=== PATIENT | male | born 1970 | race African-American/Black ===

== ENCOUNTER 2018-01-10 23:09 | Emergency (ER) | payer OTHER ==
[~2018-01-10] VITALS: Ht 182.9 cm; Wt 108.9 kg
[2018-01-10] MEDS ORDERED: [UNRECOGNIZED DRUG - REMARK] (23:19)
[2018-01-10 23:51] LABS: URINE BILIRUBIN NEGATIVE (Negative); URINE BLOOD NEGATIVE (Negative); URINE CLARITY CLEAR; URINE COLOR YELLOW; URINE GLUCOSE-RANDOM* NEGATIVE (Negative); URINE KETONES NEGATIVE (Negative); URINE LEUKOCYTES-REFLEX NEGATIVE (Negative); URINE NITRITE-REFLEX NEGATIVE (Negative); URINE PROTEIN (DIPSTICK) NEGATIVE (Negative); URINE SPECIFIC GRAVITY 1.015 (1.005-1.035); URINE UROBILINOGEN 0.2 E.U./dl (0.2-1.0)
[2018-01-10 23:59] LABS: AMP/METHAMP Negative (Negative); BARBITURATES Negative (Negative); BENZODIAZEPINES Negative (Negative); COCAINE POSITIVE (Negative); METHADONE Negative (Negative); OPIATES Negative (Negative); PCP Negative (Negative)
[2018-01-11] MEDS ORDERED: ULTRAM 50MG TAB50 MG PO (00:37)
[2018-01-11] MEDS ORDERED: NORFLEX100 MG PO (00:37)
[2018-01-11] MEDS ORDERED: NAPROSYN500 MG PO (00:37)
[2018-01-11 01:40] VITALS: BP 100/56
== END 2018-01-11 01:41 | disposition home or self-care (01) ==
LOC: ER 23:09
PROVIDERS: Emergency Medicine
DX: S39.012A Strain of muscle, fascia and tendon of lower back, initial encounter (principal); W10.9XXA Fall (on) (from) unspecified stairs and steps, initial encounter; Y93.89 Activity, other specified; Y92.89 Other specified places as the place of occurrence of the external cause; Y99.8 Other external cause status; F17.210 Nicotine dependence, cigarettes, uncomplicated; Z88.0 Allergy status to penicillin

== ENCOUNTER 2018-03-26 14:23 | Emergency (ER) | payer OTHER ==
[~2018-03-26] VITALS: Ht 188 cm; Wt 106.1 kg
[~2018-03-26 14:23] MED LIST: NAPROSYN500 MG PO; NORFLEX100 MG PO; ULTRAM 50MG TAB50 MG PO; [UNRECOGNIZED DRUG - REMARK]
[2018-03-26 15:27] LABS: ICTOTEST (BILI CONFIRMATORY) Positive (Negative); URINE BILIRUBIN 1+ (Negative); URINE BLOOD NEGATIVE (Negative); URINE CLARITY CLEAR; URINE COLOR AMBER; URINE GLUCOSE-RANDOM* NEGATIVE (Negative); URINE KETONES 1+ (Negative); URINE NITRITE-REFLEX NEGATIVE (Negative); URINE PROTEIN (DIPSTICK) NEGATIVE (Negative)
[2018-03-26 15:28] LABS: URINE LEUKOCYTES-REFLEX NEGATIVE (Negative)
[2018-03-26 15:37] LABS: HEMATOCRIT 44.6 % (42.0-52.0); HEMOGLOBIN 15.4 gm/dL (14.0-18.0); MCH 33.5 pg (26.0-34.0); MCHC 34.5 g/dL (28.0-37.0); MCV 97.2 fL (80.0-100.0); PLATELET COUNT 186 thou/uL (150-400); RBC 4.59 mil/uL (4.50-6.00); RDW 12.7 % (10.5-14.5); WBC 3.9 thou/uL (4.0-11.0)
[2018-03-26 15:44] LABS: CALCIUM 9.1 mg/dL (8.5-10.1); CREATININE 1.1 mg/dL (0.7-1.3); POTASSIUM 4.5 mmol/L (3.5-5.1)
[2018-03-26 15:50] LABS: ALBUMIN 3.8 g/dL (3.4-5.0); TOTAL PROTEIN 8.3 g/dL (6.4-8.2)
[2018-03-26 16:05] LABS: ABSOLUTE NEUTROPHILS 2.3 thou/uL (1.4-8.2); PLATELET ESTIMATE NORMAL
[2018-03-26] MEDS ORDERED: NORCO 5-325 TA1 EACH PO (18:53)
[2018-03-26 18:59] VITALS: BP 164/95
== END 2018-03-26 19:00 | disposition home or self-care (01) ==
LOC: ER 14:23
PROVIDERS: Emergency Medicine
DX: M54.5 Low back pain (principal); R10.32 Left lower quadrant pain; I10 Essential (primary) hypertension; I48.91 Unspecified atrial fibrillation

== ENCOUNTER 2018-08-09 17:07 | Inpatient (IN) | payer OTHER ==
[~2018-08-09] VITALS: Ht 188 cm; Wt 101.2 kg
[2018-08-09] VITALS (8 sets, daily range): BP systolic 119–144; BP diastolic 76–90
[~2018-08-09 17:07] MED LIST changes: +NORCO 5-325 TA1 EACH PO
[2018-08-09 17:33] LABS: BASOPHILS 1.7 % (0.0-2.0); EOSINOPHILS 7.8 % (0.0-3.0); HEMATOCRIT 45.9 % (42.0-52.0); HEMOGLOBIN 15.7 gm/dL (14.0-18.0); LYMPHOCYTES 30.1 % (24.0-44.0); MCH 32.2 pg (26.0-34.0); MCHC 34.1 g/dL (28.0-37.0); MCV 94.5 fL (80.0-100.0); MONOCYTES 11.7 % (1.0-8.0); PLATELET COUNT 218 thou/uL (150-400); POLYS 48.7 % (36.0-66.0); RBC 4.86 mil/uL (4.50-6.00); RDW 13.3 % (10.5-14.5); WBC 4.1 thou/uL (4.0-11.0)
[2018-08-09 17:38] LABS: ANION GAP 11 mmol/L (7-16); BUN 6 mg/dL (7-18); CALCIUM 8.9 mg/dL (8.5-10.1); CHLORIDE 103 mmol/L (98-107); CO2 26 mmol/L (21-32); GLUCOSE 82 mg/dL (74-106); POTASSIUM 4.1 mmol/L (3.5-5.1); SODIUM 140 mmol/L (136-145)
[2018-08-09 17:47] LABS: ALBUMIN 3.6 g/dL (3.4-5.0); SGOT 22 U/L (15-37); SGPT 19 U/L (30-65); TOTAL BILIRUBIN 0.7 mg/dL (<0.1-1.0); TOTAL PROTEIN 7.9 g/dL (6.4-8.2); TROPONIN-I <0.06 ng/mL (<0.06)
[2018-08-09] MEDS ORDERED: ATIVAN0.5 MG PO (20:16)
--- NOTE | 2018-08-09 21:40 | NUR ---
PROVIDER STATES SHE DOES NOT NEED A UA AT THIS TIME.
--- NOTE | 2018-08-09 22:08 | NUR ---
PT ARRIVED FROM ED IN STABLE CONDITION VIA STRETCHER. PT ORIENTED TO UNIT, WILL ADMIT PT. PT PLACED ON TELEMETRY.
[2018-08-09 23:27] LABS: CHOLESTEROL 227 mg/dL (<200); HDL CHOLESTEROL 46 mg/dL (>40); LDL CHOLESTEROL 158 mg/dL (<100); TC:HDL 4.9 Ratio (Not establshd); TRIGLYCERIDE 115 mg/dL (<150); VLDL 23 mg/dL (<40)
[2018-08-09 23:34] LABS: SERUM ASSESSMENT Clear
[2018-08-10] VITALS (22 sets, daily range): BP systolic 137–187; BP diastolic 75–99
[2018-08-10 01:35] LABS: AMP/METHAMP POSITIVE (Negative); BARBITURATES Negative (Negative); BENZODIAZEPINES Negative (Negative); COCAINE POSITIVE (Negative); METHADONE Negative (Negative); OPIATES POSITIVE (Negative); PCP Negative (Negative)
[2018-08-10 05:20] LABS: URINE BILIRUBIN NEGATIVE (Negative); URINE BLOOD NEGATIVE (Negative); URINE CLARITY CLEAR; URINE COLOR YELLOW; URINE GLUCOSE-RANDOM* NEGATIVE (Negative); URINE KETONES TRACE (Negative); URINE LEUKOCYTES-REFLEX NEGATIVE (Negative); URINE NITRITE-REFLEX NEGATIVE (Negative); URINE PROTEIN (DIPSTICK) NEGATIVE (Negative); URINE SPECIFIC GRAVITY 1.025 (1.005-1.035); URINE UROBILINOGEN 0.2 E.U./dl (0.2-1.0)
--- NOTE | 2018-08-10 05:53 | NUR ---
PT AWAKE IN BED WATCHING TV. PT HAS REQUIRED A FEW DOSES OF PAIN MEDICATION THROUGHOUT SHIFT. PT HAS BEEN NPO SINCE MIDNIGHT FOR STRESS TEST TODAY. PT REMAINS ON RA SATS 96%. PT CONTINUES WITH MAINTENANCE IVFs AND TOLERATING. PT SR ON MONITOR. AWAITING RECORDS FROM [facility] TODAY. NEED TO GET PT MEDICATIONS FROM [facility] FOR HOME MED VERIFICATION.
--- NOTE | 2018-08-10 08:00 | EKG ---
[address] [address] ELECTROCARDIOGRAM REPORT Name: DESIRAE SPRAGUE Room #: 244-P ADM IN M.R.#: [id number] ������������������ Admission: 08/09/18 ������������������ Attend Phys: Bandar Hodge MD Discharge: ������������������ Date of : 70 Report #: [id number] ����������������������������������������������������������������� [id number] THIS REPORT FOR: //name// [facility] ED Test Date: 2018-08-09 Test Time: 17:11:38 Pat Name: DESIRAE SPRAGUE Department: Room: [facility] Gender: M Histopathology Technician: YANNI : 1970 Requested By: Steve Blanchard Order Number: [id number] MD: Dilip Sanchez Measurements Intervals [place] Rate: 74 P: 59 OR: 140 QRS: -9 QRSD: 86 T: 35 QT: 372 QTc: 413 Interpretive Statements Sinus rhythm Probable left atrial enlargement Abnormal R-wave progression, early transition Borderline T wave abnormalities No previous ECG available for comparison Electronically Signed On 08-10-2018 8:00:02 CDT by Dilip Sanchez [email or web address] ��������������������������������������������� <ELECTRONICALLY SIGNED> ���������������������������������������� By: Dilip Sanchez MD ��������������������������������������������� 08/10/1800 10 10 Dilip Sanchez MD /BRANDON
--- NOTE | 2018-08-10 09:03 | EKG ---
[address] [address] ELECTROCARDIOGRAM REPORT Name: DESIRAE SPRAGUE Room #: 244-P ADM IN M.R.#: [id number] ������������������ Admission: 08/09/18 ������������������ Attend Phys: Bandar Hodge MD Discharge: ������������������ Date of : 70 Report #: [id number] ����������������������������������������������������������������� [id number] THIS REPORT FOR: //name// [facility] Test Date: 2018-08-10 Test Time: 08:08:53 Pat Name: DESIRAE SPRAGUE Department: Room: 244 P Gender: M Packing Inspector: LILIANE : 1970 Requested By: Sofía Fontana Order Number: [id number] MD: Dilip Sanchez Measurements Intervals [place] Rate: 72 P: 53 [place]: 145 QRS: -4 QRSD: 90 T: 3 QT: 390 QTc: 427 Interpretive Statements Sinus rhythm Probable left atrial enlargement Compared to ECG 08/09/2018 17:11:38 Electronically Signed On 08-10-2018 9:03:32 CDT by Dilip Sanchez [email or web address] ��������������������������������������������� <ELECTRONICALLY SIGNED> ���������������������������������������� By: Dilip Sanchez MD ��������������������������������������������� 08/10/18902 0808 Dilip Sanchez MD /BRANDON
--- NOTE | 2018-08-10 12:26 | NUR ---
Assumed pt care at 7am.Assessment completed.vss but bp elevated.Pt c/o chest pain radiating to his left shoulder.Morphine sulfate ivp given as ordered with partial relief.Ekg done and report called to Dr Hodge.He wanted cardiology consult the pt.Dr Gómez notified and he rounded on pt.No order received. Around 1045,pt left per wc for stress test.Will continue to monitor.
--- NOTE | 2018-08-10 13:19 | 2DMMODE ---
[facility] [address] [place] [address] 2 D/M-MODE ECHOCARDIOGRAM Name: DESIRAE SPRAGUE Room #: 244-P ADM IN M.R.#: [id number] ������������� Admission: 08/09/18 ������������� Attend Phys: Bandar Hodge, Discharge: ��� ������������� ��� Date of : 70 Date of Service: 08/10/18 1319 �� Report #: [id number] �������� ��������������������������������������������[id number] THIS REPORT FOR: //name// APPROVED REPORT Study performed: 08/10/2018 11:22:25 EXAM: Comprehensive 2D, Doppler, and color-flow Echocardiogram Patient Location: Echo lab Room #: [facility] Status: routine BSA: 2.27 HR: 67 bpm BP: 157/84 mmHg Rhythm: NSR Other Information Study Quality: Good Indications Chest Pain Hypertension/HDD 2D Dimensions RVDd: 30.16 mm IVSd: 13.70 (7-11mm) LVOT Diam: 22.71 (18-24mm) LVDd: 49.18 mm PWd: 12.61 (7-11mm) Ascending Ao: 30.03 (22-36mm) LVDs: 34.53 (25-40mm) Aortic Root: 28.66 mm IVC: 14.00 mm Volumes Left Atrial Volume (Systole) Single Plane 4CH: 49.72 mL Single Plane 2CH: 41.94 mL LA ESV Index: 25.00 mL/m2 Aortic Valve AoV Peak Ankit.: 1.35 m/s AO Peak Gr.: 7.30 mmHg LVOT Max P.11 mmHg LVOT Max V: 1.24 m/s TYRELL Vmax: 3.70 cm2 Mitral Valve E/A Ratio: 1.0 MV Decel. Time: 183.68 ms [facility] [address] [place] [address] 2 D/M-MODE ECHOCARDIOGRAM Name: LILO SPRAGUEALD Room #: 244-P [facility] IN .R.#: [id number] ������������� Admission: 08/09/18 ������������� Attend Phys: Bandar Hodge, Discharge: ��� ������������� ��� Date of : 70 Date of Service: 08/10/18 1319 �� Report #: [id number] �������� ��������������������������������������������[id number] MV E Max Ankit.: 0.93 m/s MV A Ankit.: 0.91 m/s MV PHT: 53.27 ms IVRT: 92.27 ms Pulmonary Valve PV Peak Ankit.: 1.15 m/s PV Peak Gr.: 5.30 mmHg Pulmonary Vein P Vein S: 0.73 m/s P Vein A: 0.25 m/s P Vein D: 0.51 m/s P Vein A Dur.: 120.0 msec P Vein S/D Ratio: 1.43 Tricuspid Valve TR Peak Ankit.: 2.69 m/s TR Peak Gr.: 29.01 mmHg PA Pressure: 34.00 mmHg Left Ventricle The left ventricle is normal size. There is normal LV segmental wall motion. Mild concentric left ventricular hypertrophy. The left ventricular systolic function is normal. The left ventricular ejection fraction is within the normal range. LVEF is 55-60%. The left ventricular diastolic function is normal. Right Ventricle The right ventricle is normal size. The right ventricular systolic function is normal. Atria The left atrium size is normal. The right atrium size is normal. Aortic Valve The aortic valve is normal in structure. No aortic regurgitation is present. There is no aortic valvular stenosis. Mitral Valve The mitral valve is normal in structure. Trace mitral regurgitation. No evidence of mitral valve stenosis. Tricuspid Valve The tricuspid valve is normal in structure. There is trace to mild tricuspid regurgitation. Estimated PAP 34 mmHg. Pulmonic Valve [address] [address] 2 D/M-MODE ECHOCARDIOGRAM Name: DESIRAE SPRAGUE Room #: 244-P [facility] IN ..#: [id number] ������������� Admission: 08/09/18 ������������� Attend Phys: Bandar Hodge, Discharge: ��� ������������� ��� Date of : 70 Date of Service: 08/10/18 1319 �� Report #: [id number] �������� ��������������������������������������������[id number] The pulmonary valve is normal in structure. Trace pulmonic regurgitation. Great Vessels The aortic root is normal in size. IVC is normal in size and collapses >50% with inspiration. Pericardium There is no pericardial effusion. <Conclusion> The left ventricle is normal size. Mild concentric left ventricular hypertrophy. The left ventricular systolic function is normal. The right ventricle is normal size. The left atrium size is normal. The right atrium size is normal. The aortic valve is normal in structure. Trace mitral regurgitation. There is trace to mild tricuspid regurgitation. Estimated PAP 34 mmHg. ��������������������������������������������� <ELECTRONICALLY SIGNED> ���������������������������������������� By: Lucas Rubi MD ��������������������������������������������� 08/10/18 1319 1319 1319 Lucas Rubi MD /INF
--- NOTE | 2018-08-10 16:40 | NUR ---
PT ADMITTED RELATED TO CHEST PAIN AND SOA. CM REVIEWED CHART AND SPOKE WITH CARE TEAM. CM MET WITH PT AT BEDSIDE THIS DAY FOLLOWING HIS STRESS TEST. PT INDICATED HE LIVED IN AN APARTMENT WITH HIS DTR. HE INDICATED THAT THERE ARE 6 STEPS TO ENTER AND NO STEPS INSIDE. 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 PT INDICATED HE INDICATED HE FOLLOWS AT THE [facility]. PT INDICATED THE MOTHER OF HIS DTR PASSED LAST WEEK AND THIS IS CAUSING HIM ADDITIONAL STRESS. PT INDICATED HE PLANS TO RETURN HOME ONCE MEDICALLY STABLE. 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 CM TO FOLLOW INDICATED WITH DC PLANNING.
[2018-08-11] VITALS (12 sets, daily range): BP systolic 134–161; BP diastolic 67–88
--- NOTE | 2018-08-11 04:14 | NUR ---
SHIFT NOTE ASSESSMENT AND REASSESSMENT CHARTED. PT TURNS SELF IN BED. PT CLEANED SELF UP AND LINENS WERE CHANGED. PT HAD COMPLAINTS OF PAIN DURING THE SHIFT. PT PLACED ON 2L NC PER HIS REQUEST STATING IT HELPS HIM SLEEP BETTER AT NIGHT WITH IT ON. USES THE URINAL TO VOID. NO COMPLAINTS OF NV OR SOA DURING SHIFT. PT IV IN HAND GOT WET AND FELL OUT DURING BEDBATH SO NEW IV WAS PLACED. WILL CONTINUE TO MONITOR TILL THE END OF THE SHIFT.
--- NOTE | 2018-08-11 09:38 | EKG ---
[address] [address] ELECTROCARDIOGRAM REPORT Name: DESIRAE SPRAGUE Room #: 244-P ADM IN M.R.#: [id number] ������������������ Admission: 08/09/18 ������������������ Attend Phys: Bandar Hodge MD Discharge: ������������������ Date of : 70 Report #: [id number] ����������������������������������������������������������������� [id number] THIS REPORT FOR: //name// [facility] Test Date: 2018-08-11 Test Time: 07:05:52 Pat Name: DESIRAE SPRAGUE Department: Room: 244 P Gender: M Senior Report Developer: LILIANE : 1970 Requested By: Ilana Kang Order Number: [id number] MD: Lucas Rubi Measurements Intervals [place] Rate: 67 P: 58 PA: 157 QRS: -2 QRSD: 91 T: 2 QT: 380 QTc: 401 Interpretive Statements Sinus rhythm ST elev, probable normal early repol pattern Compared to ECG 08/10/2018 08:08:53 ST (T wave) deviation now present Electronically Signed On 08-11-2018 9:38:11 CDT by Lucas Rubi [email or web address] ��������������������������������������������� <ELECTRONICALLY SIGNED> ���������������������������������������� By: Lucas Rubi MD ��������������������������������������������� 08/11/1838 4 Lucas Rubi MD /BRANDON
--- NOTE | 2018-08-11 10:14 | NUR ---
Pt dcing home today. He will need a ride. Cab voucher provided. Pt states he has scripts to pickup at [facility] so he will take his scripts home and his will go to [facility] and pickup his meds. [place] medicaid. He has been encouraged to call his clinic at [facility] and setup a followup appt for queta. He has been provided drug and ethol resources for detox, inpt and outpt treatment options. He reports that he normally does not use drugs but he is concerned that he has been drinking more recently due to the of his ex . Encouragement and resources provided. Discussed with the care team.
[2018-08-11] MEDS ORDERED: COREG6.25 MG PO (11:59)
== END 2018-08-11 12:08 | disposition home or self-care (01) | DRG 313 ==
LOC: ER 17:07 → ICU 20:46 → EROBS 20:46 → ICU 21:41
PROVIDERS: Emergency Medicine; Nurse Practitioner Acute Care; Physician Assistant; ADMIT Internal Medicine
DX: R07.9 Chest pain, unspecified (principal); I48.0 Paroxysmal atrial fibrillation; F10.10 Alcohol abuse, uncomplicated; I10 Essential (primary) hypertension; E78.5 Hyperlipidemia, unspecified; F14.10 Cocaine abuse, uncomplicated; F13.10 Sedative, hypnotic or anxiolytic abuse, uncomplicated; F15.10 Other stimulant abuse, uncomplicated; F17.210 Nicotine dependence, cigarettes, uncomplicated; Z87.828 Personal history of other (healed) physical injury and trauma; Z79.899 Other long term (current) drug therapy; Z88.0 Allergy status to penicillin; Z82.49 Family history of ischemic heart disease and other diseases of the circulatory system; Z83.3 Family history of diabetes mellitus; Z71.51 Drug abuse counseling and surveillance of drug abuser
CPT/HCPCS: 10203